=== PATIENT | female | born 1970 | race Caucasian/White ===

== ENCOUNTER → 2016-05-17 | Outpatient (CLI) | payer BC ==
[~2016-05-17] MED LIST: ACET-1256 PO; AZAT50TA17 PO; ENTI300 IV; GADAVIST IV PRN; GLUCAGON FOR INJ 1 MG VIAL ONE; LISI-461 PO; LORA-741 PO; MULTTAB58 PO; NURSING VERBAL MED ORDER ONE; PANT40TA PO; PRED10TA PO; PSEU30TA64 PO; SERT50TA PO; TRIA37.5 PO
--- NOTE | 2016-05-17 15:08 | DIAGNOSTIC IMAGING REPORT ---
MR ENTEROGRAPHY OF THE ABDOMEN AND PELVIS CLINICAL HISTORY: Abnormal weight loss. Abnormal CT scan. COMPARISON STUDY: CT scan dated 04/06/2016 FINDINGS: No hepatic or splenic masses are visualized. The pancreatic masses are visualized. There is a lobulated cystic lesion located within the omentum adjacent to the liver measuring 42 mm. This previously measured 37 mm. There is diffuse infiltration of the mesentery. Multiple mildly enlarged mesenteric lymph nodes are evident. There are persistent thick walled distal ileal loops demonstrating enhancing mucosa. There is a hypervascular appearance of the mesentery (comb sign). This finding has been reported active inflammatory bowel disease. The examination is somewhat limited from a technical standpoint due to the patient's body habitus. IMPRESSION: 1. Persistent mesenteric infiltration with mildly enlarged mesenteric lymph nodes. The appearance remains nonspecific and could be either inflammatory or neoplastic. 2. Multiple hyperenhancing thick-walled small bowel loops with a hypervascular mesentery. Given the persistence of the abnormality, the findings are unlikely to be infectious. Likely diagnostic considerations include inflammatory bowel disease, or a vasculitis. SHO inhibitor induced visceral angioedema is also within the differential. 3. Minimal interval increase in the size of the cystic lobulated omental nodule. Electronically signed by: Roshan Scott M.D. 05/17/2016 3:06 PM Dictated Date/Time: 05/17/2016 2:18 PM
== END | disposition home or self-care (01) ==
LOC: C.MRI 11:05
PROVIDERS: ATTEND Internal Medicine Gastroenterology
DX: R10.9 Unspecified abdominal pain (principal); R63.4 Abnormal weight loss; R93.8 Abnormal findings on diagnostic imaging of other specified body structures

== ENCOUNTER → 2016-07-02 | Outpatient (CLI) | payer BC ==
[~2016-07-02] MED LIST changes: -GADAVIST IV PRN; -GLUCAGON FOR INJ 1 MG VIAL ONE; -NURSING VERBAL MED ORDER ONE
== END | disposition home or self-care (01) ==
LOC: C.LAB 17:29
PROVIDERS: ATTEND Internal Medicine Gastroenterology
DX: R10.9 Unspecified abdominal pain (principal); R19.7 Diarrhea, unspecified; R93.5 Abnormal findings on diagnostic imaging of other abdominal regions, including retroperitoneum

== ENCOUNTER → 2016-07-27 | Outpatient (CLI) | payer BC ==
[2016-07-30 12:38] LABS: QUANTIF TB AG-NIL <0.00 IU/ML; QUANTIFERON NIL 0.08 IU/ML
[2016-07-30 23:45] LABS: S.CEREVISIAE AB IGA 11.1 U (<=20.0)
== END | disposition home or self-care (01) ==
LOC: C.LAB 17:23
PROVIDERS: ATTEND Internal Medicine Gastroenterology
DX: K50.00 Crohn's disease of small intestine without complications (principal)

== ENCOUNTER → 2017-02-01 | Outpatient (CLI) | payer BC ==
[~2017-02-01] MED LIST changes: +GADAVIST IV PRN; +GLUCAGON FOR INJ 1 MG VIAL ONE; +NURSING VERBAL MED ORDER ONE
--- NOTE | 2017-02-01 19:48 | DIAGNOSTIC IMAGING REPORT ---
ENTEROGRAPHY ABD/PELVIS COMBO CLINICAL HISTORY: 46 years-old Female presenting with Crohn's disease, worsening symptoms. TECHNIQUE: Multisequence, multiplanar MR imaging of the abdomen and pelvis was performed before and after the administration of intravenous contrast. IV contrast: 13 mL of Gadavist. COMPARISON: 05/17/2016. FINDINGS: Localizer images: Unremarkable. Lung bases: Lung bases clear. Normal heart size. No pericardial or pleural effusion. Liver: Normal morphology. No liver lesion. Patent hepatic vasculature. Biliary: No intrahepatic or extrahepatic biliary ductal dilatation. Gallbladder surgically absent. Pancreas: Normal. Spleen: Normal. Adrenal glands: Normal. Kidneys and ureters: Small T2 hyperintense nonenhancing lesion in the left kidney, consistent with simple cyst. No hydronephrosis. Bladder: Normal. Pelvic organs: Uterus and ovaries normal. Bowel: Lack of haustral folds from the rectum to the splenic flexure with mild wall thickening and mild enhancement, consistent with chronic inflammatory change. Similarly, an extended length of small bowel (at least 50 cm) extending from the terminal ileum proximally demonstrates mild wall thickening and mild mucosal hyperenhancement. Intramural fat deposition noted in the region of the terminal ileum and cecum. No significant perienteric or pericolonic edema. No adjacent fluid collection or convincing evidence of a sinus tract. Peritoneal cavity: T2 hypointense infiltration of the small bowel mesentery, as seen on prior exam. Persistent lobular cystic omental lesion in the anterior right upper quadrant, unchanged. Trace peritoneal free fluid. Vasculature: Aorta and IVC patent and normal in caliber. Lymph nodes: No enlarged lymph nodes in the abdomen or pelvis. Abdominal wall: Normal. Musculoskeletal: Mild S-shaped scoliotic curvature of the thoracolumbar spine.. IMPRESSION: 1. Findings consistent with chronic inflammatory change of the colon involving the splenic flexure to the rectum. Mild superimposed acute inflammatory change cannot be excluded. Acute on chronic inflammatory change of the small bowel. These findings are consistent with Crohn's disease. No evidence of penetrating or fibrostenotic disease. 2. Mesenteric infiltration and enhancement associated with prominent mesenteric lymph nodes most suggestive of mesenteric panniculitis. Electronically signed by: Shad Martin M.D. 02/01/2017 7:46 PM Dictated Date/Time: 02/01/2017 7:31 PM
== END | disposition home or self-care (01) ==
LOC: C.MRI 09:43
PROVIDERS: ATTEND Internal Medicine Gastroenterology
DX: K50.00 Crohn's disease of small intestine without complications (principal)

== ENCOUNTER → 2017-02-09 | Day surgery (SDC) | payer BC ==
[2017-02-08 10:29] VITALS: Ht 162.6 cm; Wt 131.8 kg
[~2017-02-09] VITALS: Ht 162.6 cm; Wt 131.8 kg
[~2017-02-09] MED LIST changes: -GADAVIST IV PRN; -GLUCAGON FOR INJ 1 MG VIAL ONE; +LIDOCAINE HCL 2% 2 ML VIAL (20MG/ML) ONE; -LISI-461 PO; -LORA-741 PO; -NURSING VERBAL MED ORDER ONE; +PHENYLEPHRINE 100MCG/ML 5ML SYR ONE; +PROPOFOL IV EMULSION 10 MG/ML 20 ML VIAL IV ONE
--- NOTE | 2017-02-09 12:57 | Endo History and Physical ---
History & Physical Date of Service: Feb 09, 2017. Chief Complaint: crohns flare Referring Physician: Dr Nunez History of Present Illness For colonoscopy Past Surgical History Hx Cardiac Surgery: No Hx Internal Defibrillator: No Hx Pacemaker: No Hx Abdominal Surgery: Yes ( X2, PJ) Hx Post-Op Nausea and Vomiting: No Hx Cancer Surgery: No Hx Thoracic Surgery: No Hx Orthopedic: No Hx Urinary Tract Surgery: No Family History IBD Social History Smoking Status: Former Smoker Hx Substance Use: No Hx Alcohol Use: No Allergies Coded Allergies: Iodinated Diagnostic Agents (Verified Allergy, Unknown, HIVES AND "SUNBURN ", 02/08/17) Penicillins (Verified Allergy, Unknown, UNKOWN , 02/08/17) TESTED CHILD Sulfa Antibiotics (Verified Allergy, Unknown, BLISTERS IN THROAT , 02/08/17 ) Current Medications Reported Home Medications Medications Dose Route/Sig Max Daily Dose Days Date Category Entyvio (Vedolizumab) 300 Mg Inj 1 Dose IV Q8WK 02/08/17 Reported Prednisone 10 Mg Tab 15 Mg PO QAM 02/08/17 Reported Imuran (Azathioprine) 50 Mg Tab 3 Tab PO QAM 02/08/17 Reported Sudafed (Pseudoephedrine Hcl) 30 Mg Tab 30 Mg PO DAILY PRN 04/19/16 Reported Tylenol (Acetaminophen) 500 Mg Tab 500 Mg PO Q6 PRN 04/19/16 Reported Multivitamin (Multiple Vitamin) 1 Tab Tab 1 Tab PO QAM 04/19/16 Reported Dyazide 37.5MG/25MG (Triamterene/HCTZ) Cap 1 Tab PO QAM 03/15/16 Reported Protonix (Pantoprazole Sodium) 40 Mg Tab 40 Mg PO QAM 03/15/16 Reported Zoloft (Sertraline HCl) 50 Mg Tab 2 Tab PO QAM 03/15/16 Reported Vital Signs Weight (Kilograms): 131.82 Height (Feet): 5 Height (Inches): 4 Physical Exam General Appearance: + obese Respiratory/Chest: Respiratory effort: no dyspnea Cardiovascular: Heart Auscultation: RRR Abdomen: Inspection & Palpation: soft Assessment and Plan Crohn's flare for reassessment
--- NOTE | 2017-02-09 13:43 | Discharge Instructions ---
Endoscopy Patient Instructions Date / Procedure(s) Performed Feb 09, 2017. Colonoscopy Allergy Information Coded Allergies: Iodinated Diagnostic Agents (Verified Allergy, Unknown, HIVES AND "SUNBURN ", 02/08/17) Penicillins (Verified Allergy, Unknown, UNKOWN , 02/08/17) TESTED CHILD Sulfa Antibiotics (Verified Allergy, Unknown, BLISTERS IN THROAT , 02/08/17 ) Discharge Date / Findings Feb 09, 2017. Ileal Crohn's, hemorrhoids Medication Instructions Restart Stopped Medication(s): resume meds Reported Home Medications Medications Dose Route/Sig Max Daily Dose Days Date Category Entyvio (Vedolizumab) 300 Mg Inj 1 Dose IV Q8WK 02/08/17 Reported Prednisone 10 Mg Tab 15 Mg PO QAM 02/08/17 Reported Imuran (Azathioprine) 50 Mg Tab 3 Tab PO QAM 02/08/17 Reported Sudafed (Pseudoephedrine Hcl) 30 Mg Tab 30 Mg PO DAILY PRN 04/19/16 Reported Tylenol (Acetaminophen) 500 Mg Tab 500 Mg PO Q6 PRN 04/19/16 Reported Multivitamin (Multiple Vitamin) 1 Tab Tab 1 Tab PO QAM 04/19/16 Reported Dyazide 37.5MG/25MG (Triamterene/HCTZ) Cap 1 Tab PO QAM 03/15/16 Reported Protonix (Pantoprazole Sodium) 40 Mg Tab 40 Mg PO QAM 03/15/16 Reported Zoloft (Sertraline HCl) 50 Mg Tab 2 Tab PO QAM 03/15/16 Reported Provider Instructions Activity Restrictions - No exercising or heavy lifting for 24 hours. - Do not drink alcohol the day of the procedure. - Do not drive a car or operate machinery until the day after the procedure. - Do not make any important decisions or sign important papers in 24 hours after the procedure. Following Day: - Return to full activity which may include returning to work/school. Diet Start your diet with liquids and light foods (jello, soup, juice, toast). Then eat your usual diet if not nauseated. Treatment For Common After Affects For mild abdominal pain, bloating, or excessive gas: - Rest - Eat lightly - Lie on right side Follow-Up Information Follow-up with as scheduled Anesthesia Information What You Should Know You have had a procedure that required some medicine to reduce anxiety and discomfort. This treatment is called moderate sedation. After receiving the treatment, you may be sleepy, but you will be able to breathe on your own. The effects of the treatment may last for several hours. Follow these instructions along with Activity/Diet recommendations noted above: * Do NOT do anything where dizziness or clumsiness would be dangerous. * Rest quietly at home today, then you can be up and about tomorrow. * Have a responsible person stay with you the rest of today. * You may have had an I.V. today. If so, you may take the dressing off later today. Recommendations Call your doctor if: * Trouble breathing * Continuous vomiting for more than 24 hours * Temperature above 101 degrees * Severe abdominal pain or bloating * Pain not relieved by pain medicine ordered * There is increased drainage or redness from any incision * A large amount of rectal bleeding greater than 2-3 tablespoons. (If you had a polyp/s removed or have hemorrhoids, a small amount of blood - from the rectum is to be expected.) * You have any unanswered questions or concerns. IN THE EVENT OF A SERIOUS EMERGENCY, GO TO THE NEAREST EMERGENCY ROOM Your discharge instructions were prepared by provider Casey Nunez. Patient Instructions Signature Page Rhonda Carlyn Patient (or Guardian) Signature/Date: I have read and understand the instructions given to me by my caregivers. Caregiver/RN/Doctor Signature/Date: The above-named patient and/or guardian has received patient instructions on this date. + Original Patient Signature Page (only) stays with chart. Please make copy for patient.
--- NOTE | 2017-02-09 13:51 | GI REPORT ---
Procedure Date: 02/09/2017 1:14 PM Procedure: Colonoscopy Indications: Crohn's disease of the small bowel, Disease activity assessment of Crohn's disease of the small bowel Medicines: Propofol total dose 440 mg IV, Lidocaine 40 mg IV Complications: No immediate complications. Estimated Blood Loss: Estimated blood loss: none. Procedure: Pre-Anesthesia Assessment: - Prior to the procedure, a History and Physical was performed, and patient medications, allergies and sensitivities were reviewed. The patient's tolerance of previous anesthesia was reviewed. - The risks and benefits of the procedure and the sedation options and risks were discussed with the patient. All questions were answered and informed consent was obtained. After I obtained informed consent, the scope was passed under direct vision. Throughout the procedure, the patient's blood pressure, pulse, and oxygen saturations were monitored continuously. The Scope was introduced through the anus and advanced to the terminal ileum. The colonoscopy was somewhat difficult due to significant looping. Successful completion of the procedure was aided by applying abdominal pressure. The patient tolerated the procedure well. The quality of the bowel preparation was excellent. Findings: The terminal ileum contained a few localized non-bleeding aphthae. No stigmata of recent bleeding were seen. The ileocecal valve contained a benign-appearing, intrinsic mild stenosis that was non-traversed. Non-bleeding internal hemorrhoids were found during endoscopy. The hemorrhoids were mild. No colonic Crohn's. Impression: - Aphtha in the terminal ileum. - Stricture at the ileocecal valve. - Non-bleeding internal hemorrhoids. - No specimens collected. Recommendation: - Discharge patient to home (ambulatory). - Continue present medications. - Return to GI office as previously scheduled. Casey Nunez M.D. Casey Nunez MD 02/09/2017 1:51:41 PM This report has been signed electronically. Note Initiated On: 02/09/2017 1:14 PM I attest to the content of the Intraoperative Record and orders documented therein, exceptions below
[2017-02-09 14:15] VITALS: BP 138/73; PULSE 81; O2SAT 95
--- NOTE | 2017-02-09 14:58 | Anesthesiology Progress Note ---
Anesthesia Post Op Note Date & Time Feb 09, 2017 at 14:58 Vital Signs Pain Intensity: 0 Vital Signs Past 12 Hours Date Time Temp Pulse Resp B/P (MAP) Pulse Ox O2 Delivery O2 Flow Rate FiO2 02/09/17 14:15 81 18 138/73 (94) 95 Room Air 02/09/17 14:00 89 18 133/64 (87) 94 Room Air 02/09/17 13:48 106/52 (70) 02/09/17 13:45 77 18 79/48 (58) 98 Room Air 02/09/17 12:56 37.2 83 18 150/75 (100) 93 Room Air Notes Mental Status: alert / awake / arousable, participated in evaluation Pt Amnestic to Procedure: Yes Nausea / Vomiting: adequately controlled Pain: adequately controlled Airway Patency, RR, SpO2: stable & adequate BP & HR: stable & adequate Hydration State: stable & adequate Anesthetic Complications: no major complications apparent
== END | disposition home or self-care (01) ==
LOC: C.GI 12:17
PROVIDERS: ATTEND Internal Medicine Gastroenterology
DX: K50.90 Crohn's disease, unspecified, without complications (principal); K64.8 Other hemorrhoids; E66.01 Morbid (severe) obesity due to excess calories; I10 Essential (primary) hypertension; Z79.52 Long term (current) use of systemic steroids; Z90.49 Acquired absence of other specified parts of digestive tract; Z87.891 Personal history of nicotine dependence

== ENCOUNTER 2017-05-23 13:12 | Emergency (ER) | payer BC ==
[~2017-05-23] VITALS: Ht 165.1 cm; Wt 132.4 kg
[~2017-05-23 13:12] MED LIST changes: -LIDOCAINE HCL 2% 2 ML VIAL (20MG/ML) ONE; -PHENYLEPHRINE 100MCG/ML 5ML SYR ONE; -PROPOFOL IV EMULSION 10 MG/ML 20 ML VIAL IV ONE
[2017-05-23 13:15] VITALS: Ht 165.1 cm; Wt 132.4 kg
[2017-05-23] MEDS ORDERED: XYLOCAINE 1%/SOD BICARB 20 ML VIAL INFIL ONE (13:52)
[2017-05-23] MEDS ORDERED: CLIN300C10 PO (14:14)
[2017-05-23 14:24] VITALS: BP 131/94; PULSE 88; TEMP 36.7; O2SAT 95
--- NOTE | 2017-05-23 16:45 | EMERGENCY ROOM VISIT NOTE ---
ED Visit Note First contact with patient: 13:29 CHIEF COMPLAINT: Perianal abscess. HISTORY OF PRESENT ILLNESS: Ms. Alcocer is an 46-year-old white female who ambulates into the ED accompanied by her sister complaining of a perianal abscess. Historically patient reports she has a history of Crohn's disease. Patient noticed a hard tender area in area just superior to her rectum 4 days ago. This area has been slowly getting larger, more painful and tender. On Tuesday, yesterday, she reports she sat down and this area ruptured. She reports there was possibly a small amount of blood. Since that time every time she sits down there is a small amount of drainage from the wound. Currently she is complaining of a pressure pain in the area of her abscess. She rates her discomfort 6/10. Her pain is nonradiating. Her pain worsens with palpation. She has not identified any alleviating factors related to the pain. She has not taken any medications for pain prior to arrival at the hospital. She denies any associated symptoms including fevers, chills, sweats, other skin eruptions, other skin color changes, abdominal pain, nausea, vomiting , decreased appetite, recent trauma to the area, rectal bleeding, black/tarry stools. REVIEW OF SYSTEMS: As noted above in History of Present Illness; all systems were reviewed with the patient and found to be negative unless noted above otherwise. PAST MEDICAL HISTORY: As noted above and hypertension, emphysema, gallbladder disease, stomach ulcers, status post tonsillectomy, section and cholecystectomy. CURRENT MEDICATION: Medications Dose Route/Sig Max Daily Dose Days Date Category Entyvio (Vedolizumab) 300 Mg Inj 1 Dose IV Q8WK 02/08/17 Reported Prednisone 10 Mg Tab 15 Mg PO QAM 02/08/17 Reported Imuran (Azathioprine) 50 Mg Tab 3 Tab PO QAM 02/08/17 Reported Sudafed (Pseudoephedrine Hcl) 30 Mg Tab 30 Mg PO DAILY PRN 04/19/16 Reported Tylenol (Acetaminophen) 500 Mg Tab 500 Mg PO Q6 PRN 04/19/16 Reported Multivitamin (Multiple Vitamin) 1 Tab Tab 1 Tab PO QAM 04/19/16 Reported Dyazide 37.5MG/25MG (Triamterene/HCTZ) Cap 1 Tab PO QAM 03/15/16 Reported Protonix (Pantoprazole Sodium) 40 Mg Tab 40 Mg PO QAM 03/15/16 Reported Zoloft (Sertraline HCl) 50 Mg Tab 2 Tab PO QAM 03/15/16 Reported ALLERGIES TO MEDICATION: Iodinated diagnostic agents, penicillin, sulfa. SOCIAL HISTORY: Patient is currently employed; she feels safe in her home environment; she denies tobacco and alcohol use. PHYSICAL EXAM: Vital Signs: Date Time Temp Pulse Resp B/P (MAP) Pulse Ox O2 Delivery O2 Flow Rate FiO2 05/23/17 14:24 36.7 88 18 131/94 95 05/23/17 13:15 36.7 88 18 150/80 95 Room Air General: 46 year-old white female in mild to moderate distress due to pain, nontoxic appearing, afebrile and hemodynamically stable. Neurological: Awake, alert and oriented to person, place and time. Answering questions appropriately and following commands. Skin: Warm, dry and pink. Gluteal Cleft: There is an indurated area just to the rectum with slight right sided prominence which measures about 2 cm in diameter. Skin is mildly erythematous. The lesion is fluctuant but there is no pointing or active drainage. Ears a small zone of inflammation around it but no lymphangitis. Thorax: Lungs sounds are clear to auscultation and equal bilaterally with symmetrical chest wall movement. No wheezing, rales or rhonchi. No increased respiratory effort. Abdomen: Flat, soft and nontender. Positive bowel sounds in all quadrants. No guarding or rigidity. ED COURSE: Patient is assessed as noted above. Incision and Drainage: Verbal consent was obtained after the risks and benefits were explained. The skin was prepped with betadine and a sterile field set. The area surrounding the abscess was anesthetized with 8.5 ml of 1% buffered lidocaine. The abscess cavity was incised with a scalpel. Approximately 2 mL of purulent material was drained from the abscess and more was expressed. Aerobic cultures were obtained and are currently pending. The abscess cavity was sharply dissected with iris scissors to break up loculations and a small amount of additional purulent drainage was expressed. Copious irrigation was performed using sterile saline. The abscess cavity was cleaned out with a cotton tip applicator dipped in Betadine. Hemostasis was achieved. Iodoform gauze packing was inserted into the abscess. A sterile dressing was applied. No complications and the patient tolerated the procedure well. Patient was educated about her condition and instructed on her treatment plan; she verbalized understanding and agreement with this plan. CLINICAL IMPRESSION: Rectal abscess. DISPOSITION: Patient discharged to home in stable condition accompanied by her sister; prior to departure she was reassessed and subjectively reported she was feeling better and rated her discomfort 2/10.. PLAN: Patient was encouraged to alternate ibuprofen and acetaminophen as needed for pain per Patient was prescribed clindamycin 300 mg 4 times a day for 10 days. Patient was encouraged to follow-up with family physician or return to the ED in 36-48 hours for recheck, packing removal and culture results. Patient was encouraged return ED for uncontrolled pain, signs of infection or any new/concerning symptoms.
--- NOTE | 2017-05-25 14:27 | Pharmacy Progress Note ---
ED Pharmacist Culture FollowUp Date of Service: May 25, 2017. Called patient regarding wound culture. Prescription for ciprofloxacin called to [facility] at the patient's request. Patient also stated she was feeling good and following up with her GI doctor today. Case discussed with Toney Nice PA-C, who is the prescribing provider.
== END 2017-05-23 14:26 | disposition home or self-care (01) ==
LOC: C.EDB 13:14 → C.EDD 14:26
DX: K61.1 Rectal abscess (principal); K50.90 Crohn's disease, unspecified, without complications; I10 Essential (primary) hypertension; J43.9 Emphysema, unspecified

== ENCOUNTER → 2017-06-10 | Outpatient (CLI) | payer BC ==
[~2017-06-10] MED LIST changes: +CLIN300C10 PO; +GADAVIST IV PRN
--- NOTE | 2017-06-11 11:44 | DIAGNOSTIC IMAGING REPORT ---
MRI OF THE PELVIS WITH AND WITHOUT CONTRAST CLINICAL HISTORY: CROHNS DISEASE; PERIANAL ABSCESS; FISTULA PROTOCOL COMPARISON STUDY: CT of the abdomen and pelvis April 06, 2016 and MR enterography February 01, 2017. TECHNIQUE: Utilizing a 1.5 Latesha magnet and dedicated coil, multiplanar, multi echo imaging of the pelvis with specific attention to the perirectal/perianal region was performed pre and postcontrast administration. Injection of 13 cc of Gadavist IV was uneventful. FINDINGS: A 1.6 cm right uterine body lesion likely reflects a fibroid. Mild rectal wall thickening is noted. There is no pelvic abscess. Note is made of a linear T2 hyperintense tract within the left perianal soft tissues which is located at the 3:00 position. Associated enhancement is noted. There is no rim-enhancing fluid collection to suggest an abscess. This is consistent with a left perianal fistula. No additional fistulas are identified on this examination. Otherwise, the perianal/perirectal soft tissues are unremarkable. There is no pelvic lymphadenopathy. The ovaries are not enlarged. There is a left ovarian follicle. There is no suspicious marrow replacement. IMPRESSION: 1. 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 No supralevator component. No associated abscess. No additional fistulas identified. 2. Mild rectal wall thickening. This is likely due to underdistention although a nonspecific colitis could appear similar. Electronically signed by: Efe Bajwa M.D. 06/11/2017 11:42 AM Dictated Date/Time: 06/10/2017 2:25 PM
== END | disposition home or self-care (01) ==
LOC: C.MRI 13:08
PROVIDERS: ATTEND Internal Medicine Gastroenterology
DX: K50.00 Crohn's disease of small intestine without complications (principal)

== ENCOUNTER → 2017-07-29 | Outpatient (CLI) | payer BC ==
[~2017-07-29] MED LIST changes: +GLUCAGON FOR INJ 1 MG VIAL IM ONE; +NURSING VERBAL MED ORDER ONE
--- NOTE | 2017-07-29 16:19 | DIAGNOSTIC IMAGING REPORT ---
ENTEROGRAPHY ABD/PELVIS COMBO HISTORY: 46 years-old Female CHRON'S DISEASE R/O STENOSIS follow-up study in a patient with Crohn's disease. Perianal fistula of the 3:00 position seen on comparison. COMPARISON: Pelvic MRI 06/10/2017, MR enterography 02/01/2017 TECHNIQUE: MR enterography of the abdomen and pelvis was obtained both with and without the use of 18 mL Gadavist. 1 mg glucagon intramuscular injection of the left deltoid and is also conducted. FINDINGS: The large [id number] die lay out worker localizer images demonstrate no gross abnormality. Patient obesity is noted. Lung bases appear unremarkable. The bones appear to be within normal limits. Minimal convex left curvature of the lumbar spine. Subcentimeter T2 hyperintense lesions of the kidneys suggests renal cysts. Urinary bladder is partially decompressed. 1.4 x 1.2 cm lesion of the right fundal uterus is again seen suggesting fibroid. 7 mm T2 hyperintense lesion of the left adnexum suggests ovarian follicle. Gallbladder is surgically absent. Liver, spleen, pancreas and adrenal glands appear to be within normal limits. No biliary ductal dilation identified. Aorta is normal in course and caliber without aneurysm. No bulky adenopathy. The previously described left perianal fistula is again noted, nicely seen on image 106 series 16 which appears unchanged. Lack of haustral folds extends from the rectum to the cecum, progressively worsened from comparison study. Additionally, there is mild wall thickening with mucosal enhancement within this distribution compatible with chronic inflammatory changes. Areas of more moderate wall thickening are seen within the transverse colon without significant pericolonic edema identified suggesting acute disease. Additionally, there is a long segment of terminal ileum which demonstrates areas of mild and moderate wall thickening with mucosal hyperemia. Mild perienteric edema seen within this distribution tracking along the right pericolic gutter and within the right lower quadrant mesentery with trace free fluid. No definite sinus tract or high-grade stricture identified. No bowel obstruction. T2 hypointense lesions of the right lower quadrant small bowel mesentery redemonstrated with lobular cystic foci of the abdominal right upper quadrant suggesting sclerosing mesenteritis, unchanged. IMPRESSION: 1. Progressively worsened chronic inflammatory changes of the colon which now extends from the rectum to the cecum, likely with areas of superimposed acute disease. 2. Long segment of terminal ileum demonstrates wall thickening with mucosal hyperemia and mild adjacent perienteric edema compatible with acute on chronic inflammatory bowel disease. 3. No new sinus tract, definite stricture or bowel obstruction. 4. Unchanged small left perianal fistula, better seen on comparison pelvic MRI 06/10/2017. 5. Unchanged appearance of sclerosing mesenteritis. 6. Prior cholecystectomy The above report was generated using voice recognition software. It may contain grammatical, syntax or spelling errors. Electronically signed by: Ottoniel Caba M.D. 07/29/2017 4:17 PM Dictated Date/Time: 07/29/2017 12:56 PM
== END | disposition home or self-care (01) ==
LOC: C.MRI 10:22
PROVIDERS: ATTEND Internal Medicine Gastroenterology
DX: K50.00 Crohn's disease of small intestine without complications (principal)

== ENCOUNTER → 2017-08-10 | Outpatient (CLI) | payer BC ==
[~2017-08-10] MED LIST changes: -GADAVIST IV PRN; -GLUCAGON FOR INJ 1 MG VIAL IM ONE; -NURSING VERBAL MED ORDER ONE
[2017-08-10 17:14] LABS: HEMATOCRIT 39.6 % (37-47); HEMOGLOBIN 12.9 g/dL (12.0-16.0); MEAN CELL VOLUME 84.3 fL (80-100); MEAN CORPUSCULAR HEMOGLOBIN 27.4 pg (25-34); MEAN CORPUSCULAR HGB CONC 32.6 g/dl (32-36); MEAN PLATELET VOLUME 9.1 fL (7.4-10.4); PLATELET COUNT 293 K/uL (130-400); RED CELL DISTRIBUTION WIDTH CV 16.1 % (11.5-14.5); WHITE BLOOD COUNT 8.72 K/uL (4.8-10.8)
--- NOTE | 2017-08-10 17:28 | DIAGNOSTIC IMAGING REPORT ---
PA CHEST WITH ABDOMINAL SERIES CLINICAL HISTORY: Chronic abdominal bloating. Generalized abdominal pain. FINDINGS: A PA chest radiograph is compared obtained. No prior studies are available for comparison at the time of dictation. The cardiomediastinal silhouette is unremarkable. There is mild elevation of right hemidiaphragm with bibasilar atelectasis. The lungs and pleural spaces are otherwise clear. No pneumothorax is seen. The skeletal structures are osteopenic. There is S-shaped thoracolumbar scoliosis. Supine and erect abdominal radiographs are correlated with abdominal CT dated 04/06/2016. The examination is degraded by large body habitus. Cholecystectomy clips are identified in the right upper quadrant. There is a nonobstructed abdominal bowel gas pattern. No evidence of intraperitoneal free air is seen. There are no abnormal abdominal calcifications. The lumbosacral spine and bony pelvis appear intact. An indeterminant metallic density projects over the pubic symphysis. IMPRESSION: 1. No active disease in the chest. 2. Nonobstructed abdominal bowel gas pattern. Electronically signed by: Garry Paredes M.D. 08/10/2017 5:26 PM Dictated Date/Time: 08/10/2017 5:25 PM
== END | disposition home or self-care (01) ==
LOC: C.RAD 16:37
PROVIDERS: ATTEND Internal Medicine Gastroenterology
DX: K50.00 Crohn's disease of small intestine without complications (principal)

== ENCOUNTER → 2017-09-07 | Day surgery (SDC) | payer BC ==
[2017-08-29 13:11] VITALS: Ht 165.1 cm; Wt 133.0 kg
[~2017-09-07] VITALS: Ht 165.1 cm; Wt 133.0 kg
[~2017-09-07] MED LIST changes: -ACET-1256 PO; +CHOL1000 PO; -CLIN300C10 PO; +ERGO500037 PO; +LIDOCAINE HCL 2% 2 ML VIAL (20MG/ML) ONE; +MIDAZOLAM HCL 1 MG/ML 2ML VIAL ONE; +PRED-301 PO; -PRED10TA PO; +PROPOFOL IV EMULSION 10 MG/ML 20 ML VIAL ONE; -PSEU30TA64 PO; +SERT-234 PO; -SERT50TA PO
--- NOTE | 2017-09-07 14:19 | Endo History and Physical ---
History & Physical Date of Service: September 07, 2017. Chief Complaint: Ileal Crohn's assess disease status Referring Physician: Dr Stark History of Present Illness For colonoscopy Past Surgical History Hx Cardiac Surgery: No Hx Internal Defibrillator: No Hx Pacemaker: No Hx Abdominal Surgery: Yes ( X2, PJ) Hx Post-Op Nausea and Vomiting: No Hx Cancer Surgery: No Hx Thoracic Surgery: No Hx Orthopedic: No Hx Urinary Tract Surgery: No Family History None Social History Smoking Status: Former Smoker Hx Substance Use: No Hx Alcohol Use: No Allergies Coded Allergies: Iodinated Diagnostic Agents (Verified Allergy, Unknown, HIVES AND "SUNBURN ", 08/29/17) Penicillins (Verified Allergy, Unknown, UNKOWN , 08/29/17) TESTED CHILD Sulfa Antibiotics (Verified Allergy, Unknown, BLISTERS IN THROAT , 08/29/17 ) Current Medications Reported Home Medications Medications Dose Route/Sig Max Daily Dose Days Date Category Vitamin D 84017 Unit (Ergocalciferol) 50,000 Unit Cap 1 Cap PO WK 28 08/29/17 Reported Vitamin D3 (Cholecalciferol) 1,000 Unit Tab 1 Tab PO DAILY 30 08/29/17 Reported Prednisone 5 Mg Tab 5 Mg PO QAM 08/29/17 Reported Zoloft (Sertraline HCl) 100 Mg Tab 1 Tab PO QAM 90 08/29/17 Reported Entyvio (Vedolizumab) 300 Mg Inj 1 Dose IV Q6WK 02/08/17 Reported Imuran (Azathioprine) 50 Mg Tab 3 Tab PO QAM 02/08/17 Reported Multivitamin (Multiple Vitamin) 1 Tab Tab 1 Tab PO QAM 04/19/16 Reported Dyazide 37.5MG/25MG (Triamterene/HCTZ) Cap 0.5 Tab PO QAM 03/15/16 Reported Protonix (Pantoprazole Sodium) 40 Mg Tab 40 Mg PO QAM 03/15/16 Reported Vital Signs Weight (Kilograms): 133 Height (Feet): 5 Height (Inches): 5 Physical Exam General Appearance: + obese Respiratory/Chest: Respiratory effort: no dyspnea Cardiovascular: Heart Auscultation: RRR Abdomen: Inspection & Palpation: soft Assessment and Plan Crohn's for colonoscopy reassessment
--- NOTE | 2017-09-07 14:52 | Discharge Instructions ---
Endoscopy Patient Instructions Date / Procedure(s) Performed September 07, 2017. Colonoscopy Allergy Information Coded Allergies: Iodinated Diagnostic Agents (Verified Allergy, Unknown, HIVES AND "SUNBURN ", 08/29/17) Penicillins (Verified Allergy, Unknown, UNKOWN , 08/29/17) TESTED CHILD Sulfa Antibiotics (Verified Allergy, Unknown, BLISTERS IN THROAT , 08/29/17 ) Discharge Date / Findings September 07, 2017. Ileal Crohn's with stenosis Medication Instructions Stopped Medication(s): VITAMINS Restart Stopped Medication(s): resume meds Reported Home Medications Medications Dose Route/Sig Max Daily Dose Days Date Category Vitamin D 76999 Unit (Ergocalciferol) 50,000 Unit Cap 1 Cap PO WK 28 08/29/17 Reported Vitamin D3 (Cholecalciferol) 1,000 Unit Tab 1 Tab PO DAILY 30 08/29/17 Reported Prednisone 5 Mg Tab 5 Mg PO QAM 08/29/17 Reported Zoloft (Sertraline HCl) 100 Mg Tab 1 Tab PO QAM 90 08/29/17 Reported Entyvio (Vedolizumab) 300 Mg Inj 1 Dose IV Q6WK 02/08/17 Reported Imuran (Azathioprine) 50 Mg Tab 3 Tab PO QAM 02/08/17 Reported Multivitamin (Multiple Vitamin) 1 Tab Tab 1 Tab PO QAM 04/19/16 Reported Dyazide 37.5MG/25MG (Triamterene/HCTZ) Cap 0.5 Tab PO QAM 03/15/16 Reported Protonix (Pantoprazole Sodium) 40 Mg Tab 40 Mg PO QAM 03/15/16 Reported Provider Instructions Activity Restrictions - No exercising or heavy lifting for 24 hours. - Do not drink alcohol the day of the procedure. - Do not drive a car or operate machinery until the day after the procedure. - Do not make any important decisions or sign important papers in 24 hours after the procedure. Following Day: - Return to full activity which may include returning to work/school. Diet Start your diet with liquids and light foods (jello, soup, juice, toast). Then eat your usual diet if not nauseated. Treatment For Common After Affects For mild abdominal pain, bloating, or excessive gas: - Rest - Eat lightly - Lie on right side Follow-Up Information Follow-up with Dr. Stakr as scheduled Anesthesia Information What You Should Know You have had a procedure that required some medicine to reduce anxiety and discomfort. This treatment is called moderate sedation. After receiving the treatment, you may be sleepy, but you will be able to breathe on your own. The effects of the treatment may last for several hours. Follow these instructions along with Activity/Diet recommendations noted above: * Do NOT do anything where dizziness or clumsiness would be dangerous. * Rest quietly at home today, then you can be up and about tomorrow. * Have a responsible person stay with you the rest of today. * You may have had an I.V. today. If so, you may take the dressing off later today. Recommendations Call your doctor if: * Trouble breathing * Continuous vomiting for more than 24 hours * Temperature above 101 degrees * Severe abdominal pain or bloating * Pain not relieved by pain medicine ordered * There is increased drainage or redness from any incision * A large amount of rectal bleeding greater than 2-3 tablespoons. (If you had a polyp/s removed or have hemorrhoids, a small amount of blood - from the rectum is to be expected.) * You have any unanswered questions or concerns. IN THE EVENT OF A SERIOUS EMERGENCY, GO TO THE NEAREST EMERGENCY ROOM Your discharge instructions were prepared by provider Casey Nunez. Patient Instructions Signature Page Rhonda Alcocer Patient (or Guardian) Signature/Date: I have read and understand the instructions given to me by my caregivers. Caregiver/RN/Doctor Signature/Date: The above-named patient and/or guardian has received patient instructions on this date. + Original Patient Signature Page (only) stays with chart. Please make copy for patient.
--- NOTE | 2017-09-07 14:57 | GI REPORT ---
Patient Name: Rhonda Alcocer Procedure Date: 09/07/2017 2:28 PM Date of : 1970 Admit Type: Outpatient Age: 47 Gender: Female Attending MD: Casey Nunez MD Procedure: Colonoscopy Providers: Casey Nunez MD Referring MD: Mike Stark Indications: Disease activity assessment of Crohn's disease of the small bowel Medicines: Midazolam 2 mg IV, Propofol total dose 250 mg IV, Lidocaine 40 mg IV Complications: No immediate complications. Estimated Blood Loss: Estimated blood loss: none. Procedure: Pre-Anesthesia Assessment: - Prior to the procedure, a History and Physical was performed, and patient medications, allergies and sensitivities were reviewed. The patient's tolerance of previous anesthesia was reviewed. - The risks and benefits of the procedure and the sedation options and risks were discussed with the patient. All questions were answered and informed consent was obtained. After I obtained informed consent, the scope was passed under direct vision. Throughout the procedure, the patient's blood pressure, pulse, and oxygen saturations were monitored continuously. The scope was introduced through the anus and advanced to the terminal ileum. The colonoscopy was performed without difficulty. The patient tolerated the procedure well. The quality of the bowel preparation was excellent. Findings: Seton present. The ileocecal valve contained a benign-appearing, intrinsic mild stenosis that was traversed. The ileum, 5 cm from the ileocecal valve contained a benign-appearing, intrinsic moderate stenosis that was non-traversed. Patchy inflammation, moderate in severity and characterized by friability was found in the terminal ileum. The entire examined colon appeared normal. Impression: - Stricture at the ileocecal valve. - Stricture in the ileum, 5 cm from the ileocecal valve. - Crohn's disease with ileitis. - The entire examined colon is normal. - No specimens collected. Recommendation: - Discharge patient to home (ambulatory). - Continue present medications. - Return to GI office as previously scheduled. Casey Nunez M.D. Casey Nunez MD 09/07/2017 2:57:04 PM This report has been signed electronically. Note Initiated On: 09/07/2017 2:28 PM Number of Addenda: 0 I attest to the content of the Intraoperative Record and orders documented therein, exceptions below {[id number]}
--- NOTE | 2017-09-07 15:00 | Anesthesiology Progress Note ---
Anesthesia Post Op Note Date & Time September 07, 2017 at 15:00 Vital Signs Pain Intensity: 0 Vital Signs Past 12 Hours Date Time Temp Pulse Resp B/P (MAP) Pulse Ox O2 Delivery O2 Flow Rate FiO2 09/07/17 14:46 80 16 107/62 (77) 92 Room Air 09/07/17 14:14 37.2 82 18 113/65 (81) 91 Room Air Notes Mental Status: alert / awake / arousable, participated in evaluation Pt Amnestic to Procedure: Yes Nausea / Vomiting: adequately controlled Pain: adequately controlled Airway Patency, RR, SpO2: stable & adequate BP & HR: stable & adequate Hydration State: stable & adequate Anesthetic Complications: no major complications apparent
[2017-09-07 15:10] VITALS: BP 129/74; PULSE 81; O2SAT 95
== END | disposition home or self-care (01) ==
LOC: C.GI 13:48
PROVIDERS: ATTEND Internal Medicine Gastroenterology
DX: K50.90 Crohn's disease, unspecified, without complications (principal); K56.699 Other intestinal obstruction unspecified as to partial versus complete obstruction; K52.9 Noninfective gastroenteritis and colitis, unspecified; I10 Essential (primary) hypertension; E66.9 Obesity, unspecified; F41.9 Anxiety disorder, unspecified; F32.9 Major depressive disorder, single episode, unspecified; Z79.899 Other long term (current) drug therapy; Z88.0 Allergy status to penicillin; Z88.2 Allergy status to sulfonamides; Z88.8 Allergy status to other drugs, medicaments and biological substances; Z90.49 Acquired absence of other specified parts of digestive tract; Z90.89 Acquired absence of other organs; Z87.891 Personal history of nicotine dependence; Z68.42 Body mass index [BMI] 45.0-49.9, adult